=== PATIENT | female | born 2000 | race Caucasian/White ===

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

== ENCOUNTER 2020-08-28 14:32 | Emergency (ER) | payer OTHER ==
[~2020-08-28] VITALS: Ht 172 cm; Wt 63.6 kg
--- NOTE | 2020-08-28 14:51 | ED Upper Extremity ---
General Chief Complaint: Upper Extremity Stated Complaint: R COLLARBONE PAIN Source: patient Exam Limitations: no limitations (AYE VERDIN APRN) History of Present Illness Date Seen by Provider: Aug 28, 2020 Time Seen by Provider: 14:47 Initial Comments To ER with right shoulder and collarbone pain. She was playing disc golf about 3 days ago when she threw the disc and felt a popping sensation in her shoulder. Now anytime that she brings her arm forward and abducts the shoulder she notices a bulging at the sternoclavicular junction which was not present before. Onset: just prior to arrival Severity: moderate Pain/Injury Location: right shoulder Method of Injury: other (Throwing) Modifying Factors: Worse With Movement (AYE VERDIN APRN) Allergies and Home Medications Allergies Coded Allergies: No Known Drug Allergies (Unverified , 02/08/14) Home Medications Meclizine Hcl 25 Mg Tab, 1 TAB PO QID PRN Prescribed by: GRETCHEN GARSIA on 02/08/14 1535 Patient Home Medication List Home Medication List Reviewed: Yes (AYE VERDIN APRN) Review of Systems Constitutional: see HPI EENTM: see HPI Respiratory: no symptoms reported Cardiovascular: no symptoms reported Genitourinary: no symptoms reported Musculoskeletal: see HPI Skin: no symptoms reported Psychiatric/Neurological: No Symptoms Reported (AYE VERDIN APRN) Past [facility]wyakhs-Ljzaoy-Nalbkb Hx Past Medical History Asthma (AYE VERDIN APRN) Physical Exam Vital Signs Vital Signs - First Documented 08/28/20 14:37 Temp 36.5 Pulse 90 Resp 18 B/P (MAP) 120/88 (99) Pulse Ox 90 O2 Delivery Room Air (GUERRERO GARZON MD) Vital Signs Capillary Refill : (AYE VERDIN APRN) Height, Weight, BMI Height: 5'8" Weight: 110lbs. oz. 49.300560pm; BMI Method: General Appearance: WD/WN, no apparent distress Respiratory: no respiratory distress, no accessory muscle use Shoulder: normal inspection, non-tender, limited ROM (With shoulder abduction there is a palpable asymmetric bulge over the right sternoclavicular junction th at is not present on the left. The medial portion of the clavicle dislocates anteriorly and reduces upon shoulder abduction. ) Elbow/Forearm: normal inspection, non-tender Wrist: Yes normal inspection, Yes non-tender Hand: normal inspection, non-tender Neurologic/Psychiatric: alert, normal mood/affect, oriented x 3 Skin: normal color, warm/dry (AYE VERDIN APRN) Progress/Results/Core Measures Results/Orders Vital Signs/I&O 08/28/20 08/28/20 14:37 15:39 Temp 36.5 36.5 Pulse 90 90 Resp 18 18 B/P (MAP) 120/88 (99) 120/88 (99) Pulse Ox 90 90 O2 Delivery Room Air (GUERRERO GARZON MD) Departure Communication (Admissions) I will give her a sling, follow-up with orthopedics. She is neurovascularly intact at the fingertips, this is an anterior dislocation. This can be treated conservatively with limitation of movement, ice and NSAIDs. 1539-normal thumbs up normal okay sign. Discussed with the patient that she will need to follow-up with primary care to have MRI ordered to evaluate the labrum and the rotator cuff. Mother is upset that I cannot order this here from the emergency room. Discussed with her that we neither have MRI available on the weekends nor is it indicated from emergent standpoint even if we did have it available. She states "well if Id known that I would have gone somewhere else". Discussed with her that this is a very common problem and out of my control. She states "why cant you order it since she has an injury? you know theyre going to want it". I discussed with her that this is a daily problem that we encounter and I am not making this up. (AYE VERDIN APRN) Impression Primary Impression: Sternoclavicular separation Disposition: 01 HOME, SELF-CARE Condition: Stable Departure-Patient Inst. Decision time for Depature: 14:50 (AYE VERDIN APRN) Referrals: JIM REEVES MD (PCP/Family) Primary Care Physician JENNIFER DESAI MD, MICHAEL P MD Patient Instructions: How to Use a Shoulder Sling Add. Discharge Instructions: 1. Sling at all times except when showering for the next 3 weeks or as directed otherwise by orthopedics. Call an orthopedist of your choosing on Sunday to make an appointment to be seen for follow-up. All discharge instructions reviewed with patient and/or family. Voiced understanding. ATTENDING PHYSICIAN NOTE: I was physically present as attending physician in the emergency department during the care of this patient, but I was not directly involved in the decision making or delivery of care for this patient. (GUERRERO GARZON MD) Images Torso/Trunk 1 - Other-See Progress Note (AYE VERDIN APRN) AYE VERDIN APRN Aug 28, 2020 14:50 GUERRERO GARZON MD Aug 28, 2020 18:44
--- NOTE | 2020-08-28 15:30 | Diagnostic Imaging Report ---
INDICATION: Right shoulder pain. COMPARISON: Right shoulder radiographs performed concurrently. TECHNIQUE: Two views of the right clavicle. FINDINGS: The sternoclavicular joint on the right appears symmetric to the left. AC joint alignment is normal. No fracture within the clavicle. IMPRESSION: Normal alignment of the clavicle. Dictated by: Dictated on workstation # [id number]
--- NOTE | 2020-08-28 15:30 | Diagnostic Imaging Report ---
INDICATION: Right shoulder pain. COMPARISON: Right clavicle radiographs performed concurrently. TECHNIQUE: 3 views of the right shoulder. FINDINGS: Glenohumeral and acromioclavicular joints are in normal alignment. No fracture. Subacromial space is preserved. IMPRESSION: Normal right shoulder radiographs. Dictated by: Dictated on workstation # [id number]
[2020-08-28 15:39] VITALS: BP 120/88
== END 2020-08-28 15:41 | disposition home or self-care (01) ==
LOC: EDUNIT# 14:32 → ER 14:35
DX: S43.201A Unspecified subluxation of right sternoclavicular joint, initial encounter (principal); X50.0XXA Overexertion from strenuous movement or load, initial encounter; Y93.53 Activity, golf
CPT/HCPCS: 73000; 73030; 99283; A4565

== ENCOUNTER → 2021-01-28 | Outpatient (CLI) | payer OTHER ==
--- NOTE | 2021-01-28 11:14 | Diagnostic Imaging Report ---
INDICATION: Left lower quadrant pain Supine views of the abdomen show the bowel gas pattern to be within normal limits. There is no mass or calculus. There is no bony abnormality. IMPRESSION: No abnormality is seen. Dictated by: Dictated on workstation # [id number]
== END ==
LOC: RAD 10:33
PROVIDERS: ATTEND Nurse Practitioner Family
DX: Z23 Encounter for immunization (principal); J45.909 Unspecified asthma, uncomplicated; H81.09 Meniere's disease, unspecified ear; M12.9 Arthropathy, unspecified; N39.0 Urinary tract infection, site not specified
CPT/HCPCS: 74018

== ENCOUNTER 2022-05-09 05:31 | Outpatient (CLI) | payer OTHER ==
[~2022-05-09] VITALS: Ht 172.7 cm; Wt 70.5 kg
[2022-05-09] MEDS ORDERED: ETON1VAG VG (15:13)
== END 2022-05-09 16:58 | disposition home or self-care (01) ==
LOC: PREOP 05:31
PROVIDERS: ATTEND Otolaryngology Otolaryngology/Facial Plastic Surgery
DX: Z01.818 Encounter for other preprocedural examination (principal)

== ENCOUNTER 2022-05-16 09:46 | Day surgery (SDC) | payer OTHER ==
[2022-05-16] VITALS (11 sets, daily range): BP systolic 89–124; BP diastolic 53–81
[~2022-05-16] VITALS: Ht 172.7 cm; Wt 70.5 kg
[~2022-05-16 09:46] MED LIST changes: +ETON1VAG VG
[2022-05-16] MEDS ORDERED: SCOPOLAMINE 1.5 MG (TRANSDERM-SCOP) PATCH TOP ONE (10:45)
[2022-05-16] MEDS ORDERED: FAMOTIDINE 20MG/2ML IV (PEPCID) IV ONE (10:45)
[2022-05-16] MEDS ORDERED: ONDANSETRON 4 MG/2 ML (SDV) Z0FRAN IV ONE (10:45)
[2022-05-16] MEDS: LACTATED RINGERS 1,000 ML IV PRN ×2 (10:50→13:36)
[2022-05-16] MEDS ORDERED: GLYCOPYRROLATE 0.2 MG/ML (ROBINUL) 2 ML VIAL ONE (12:25)
[2022-05-16] MEDS ORDERED: fentaNYL INJ 100 MCG/2 ML AMP ONE (12:25)
[2022-05-16] MEDS ORDERED: LIDOCAINE PF 2% 5 ML (XYLOCAINE) VIAL ONE (12:25)
[2022-05-16] MEDS ORDERED: proPOfol 200 MG/20 ML (DIPRIVAN) VIAL IV ONE (12:25)
[2022-05-16] MEDS ORDERED: ONDANSETRON 4 MG/2 ML (SDV) Z0FRAN ONE (12:25)
[2022-05-16] MEDS ORDERED: ROCURONIUM 50 MG/5 ML (ZEMURON) VIAL IV ONE (12:26)
[2022-05-16] MEDS ORDERED: NEOSTIGMINE (BLOXIVERZ ) 1 MG/1ML 10 ML VIAL ONE (12:26)
[2022-05-16] MEDS ORDERED: MIDAZOLAM 2 MG/2 ML (VERSED) VIAL ONE (12:26)
--- NOTE | 2022-05-16 12:47 | Progress Note-Pre Operative ---
Pre-Operative Progress Note Date of Available H&P: May 16, 2022 Date H&P Reviewed: May 16, 2022 Time H&P Reviewed: 12:00 History & Physical: H&P Reviewed, Patient Examed, No changes noted Changes from last HP none Pre-Operative Diagnosis: rec tonsillitis, Chronic Tonsil Stones RAMONA JAMES MD May 16, 2022 12:47
--- NOTE | 2022-05-16 12:48 | Progress Note-Post Operative ---
Post-Operative Progess Note Surgeon (s)/Armor Officer (s) Surgeon RAMONA JAMES MD Armor Officer n/a Pre-Operative Diagnosis rec tonsillitis, Chronic Tonsil Stones Post-Operative Diagnosis same Post-Op Procedure Note Date of Procedure: May 16, 2022 Name of Procedure Performed: Tonsillectomy Description & Findings Description and Findings: n/a Anesthesia Type get Estimated Blood Loss minimal Packing none. Specimen(s) collected/removed tonsils RAMONA JAMES MD May 16, 2022 12:48
[2022-05-16] MEDS ORDERED: APAP 325 MG/10.15 ML LIQ (TYLENOL) UDC PO PRN (13:00)
[2022-05-16] MEDS ORDERED: NS IV 1000 ML 1,000 ML IV SCH (13:00)
[2022-05-16] MEDS ORDERED: oxyCODONE 5 MG/5 ML ORAL SOLN (roxiCODONE) 5 ML UDC PO PRN (13:00)
[2022-05-16] MEDS ORDERED: SEVOFLURANE (ULTANE) 15 ML INHAL SOLN ONE (13:02)
[2022-05-16] MEDS ORDERED: HYDROmorphone 2 MG/ML VIAL (DILAUDID) IV ONE (13:30)
[2022-05-16] MEDS ORDERED: morphine INJ 10 MG/ML 1ML (SYR OR VIAL) IVP ONE (13:30)
[2022-05-16] MEDS ORDERED: ONDANSETRON 4 MG/2 ML (SDV) Z0FRAN IVP PRN (13:30)
--- NOTE | 2022-05-16 13:41 | Anesthesia-General Post-Op ---
General Patient Condition Mental Status/LOC: Same as Preop Cardiovascular: Satisfactory Nausea/Vomiting: Absent Respiratory: Satisfactory Pain: Controlled Complications: Absent Post Op Complications Complications None Follow Up Care/Instructions Patient Instructions None needed. Anesthesia/Patient Condition Patient Condition Patient is in PACU awake and doing well, no complaints, stable vital signs, no apparent adverse anesthesia problems. No complications reported per nursing. KATHERYN HARRISON DO May 16, 2022 13:41
[2022-05-16] MEDS ORDERED: OXYC5SOL19 PO (15:18)
[2022-05-16] MEDS ORDERED: TETRACAINESUCKERS MT (15:18)
[2022-05-16] MEDS ORDERED: DEXAINTSOL PO (15:18)
[2022-05-16] MEDS ORDERED: AZIT200S47 PO (15:18)
== END 2022-05-16 16:25 | disposition home or self-care (01) ==
LOC: SDC 09:46
PROVIDERS: ATTEND Otolaryngology Otolaryngology/Facial Plastic Surgery
DX: J35.01 Chronic tonsillitis (principal); J35.8 Other chronic diseases of tonsils and adenoids
CPT/HCPCS: 84703; 87081

== ENCOUNTER 2022-05-17 14:23 | Observation (INO) | payer OTHER ==
[~2022-05-17] VITALS: Ht 173 cm; Wt 68.0 kg
[~2022-05-17 14:23] MED LIST changes: +AZIT200S47 PO; +DEXAINTSOL PO; +OXYC5SOL19 PO; +TETRACAINESUCKERS MT
[2022-05-17] MEDS ORDERED: NS IV 500 ML 500 ML IV ONE (15:30)
--- NOTE | 2022-05-17 15:43 | Diagnostic Imaging Report ---
CLINICAL INDICATIONS: Patient with crepitus in the jaw. EXAM: Portable chest x-ray upright view. COMPARISON: None. FINDINGS: Lungs/pleura: Lungs are clear. There is no pneumothorax. There is no pleural effusion. Mediastinum: Unremarkable. Pulmonary vasculature: Unremarkable. Heart: Unremarkable. Bones/extrathoracic soft tissue: Unremarkable. IMPRESSION: There is no radiographic evidence of acute cardiopulmonary process. Dictated by: Dictated on workstation # [id number]
--- NOTE | 2022-05-17 15:47 | ED EENT ---
History of Present Illness General Chief Complaint: Oral/Throat Problems Stated Complaint: POST OP TONSIL PAIN | SWOLLEN THROAT Nursing Triage Note: Patient ambulatory to ER w c/o throat swelling and pain post tonisillectomy. Patients states it's taking a lot of effort to swallow- started yesterday after surgery getting worse. patient denies difficulty breathing or bleeding at this time. Source: patient, family Exam Limitations: no limitations History of Present Illness Date Seen by Provider: May 17, 2022 Time Seen by Provider: 15:25 Initial Comments 22-year-old female presents to the ED with complaints of difficulty swallowing and crepitus of her jaw and neck. She had her tonsils removed yesterday by Dr. Ariza. Denies any issue with breathing, denies fevers. Reports some redness to her chin and jaw. States that she is able to swallow, but has difficulty with it. Dr. Ariza is already down in the ER to see her. Allergies and Home Medications Allergies Coded Allergies: chlorhexidine (Unverified Allergy, Intermediate, Rash, 05/09/22) Patient Home Medication List Home Medication List Reviewed: Yes Azithromycin (Azithromycin) 200 Mg/5 Ml Susp.recon, 1 TSP PO DAILY Prescribed by: MATTHIAS CONNOLLY on 05/16/221517 Last Action: Reviewed Dexamethasone (Decadron Intensol Oral Solution (Repackaging)) 1 Mg/Ml Naida, 2 TSP PO DAILY PRN for PAIN Prescribed by: MATTHIAS CONNOLLY on 05/16/221517 Last Action: Reviewed Etonogestrel/Ethinyl Estradiol (Nuvaring Vaginal Ring) 0.12 Mg-0.015 Mg/24 Hr Vag.ring, 1 EACH VG EVERY 3 WEEKS, (Reported) Entered as Reported by: Naima Fitzgerald on 05/09/221512 Last Action: Reviewed Oxycodone HCl (Oxycodone HCl) 5 Mg/5 Ml Solution, 1-2 ML PO Q4H Prescribed by: MATTHIAS CONNOLLY on 05/16/221517 Last Action: Reviewed Tetracaine (Tetracaine Suckers) Eloisa Ea, 1 EA MT UD PRN for PAIN Prescribed by: MATTHIAS CONNOLLY on 05/16/221517 Last Action: Reviewed Review of Systems Review of Systems Constitutional: see HPI Past Fmzubkh-Obyroe-Cymtbi Hx Patient Social History Tobacco Use?: No Substance use?: No Alcohol Use?: No Immunizations Up To Date Tetanus Booster (TDap): More than 5yrs First/Initial COVID19 Vaccinat: unknown Second COVID19 Vaccination Vaibhav: 10/23 Third COVID19 Vaccination Date: 04/26 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 Seasonal Allergies Seasonal Allergies: No Past Medical History Surgeries: Yes Orthopedic Respiratory: No Asthma Currently Using CPAP: No Currently Using BIPAP: No Cardiac: No Neurological: No Genitourinary: No Gastrointestinal: No Musculoskeletal: No Endocrine: No HEENT: No Cancer: No Psychosocial: Yes Anxiety Integumentary: No Blood Disorders: No Adverse Reaction/Blood Tranf: No Physical Exam Vital Signs Vital Signs - First Documented 05/17/22 05/17/22 05/17/22 14:32 17:36 18:31 Temp 36.8 Pulse 89 Resp 18 B/P (MAP) 139/74 (95) Pulse Ox 98 O2 Delivery Nasal Cannula FiO2 21 Height, Weight, BMI Height: 5'8" Weight: 110lbs. oz. 49.662141bp; 22.00 BMI Method: General Appearance: WD/WN, no apparent distress Mouth/Throat: No pharynx swelling; other (Wound to posterior throat due to tonsillectomy, no swelling of throat) Neck: supple, other (Crepitus) Cardiovascular: regular rate, rhythm, no edema, no gallop, no JVD, no murmur Respiratory: lungs clear, normal breath sounds, no respiratory distress, no accessory muscle use Neurologic/Psychiatric: alert, oriented x 3 Skin: normal color, warm/dry Progress/Results/Core Measures Results/Orders My Orders Orders - MU LUO APRN Chest 1 View, Ap/Pa Only (05/17/22 15:25) Ed Iv/Invasive Line Start (05/17/22 15:25) Ns Iv 500 Ml (Sodium Chloride 0.9%) (05/17/22 15:30) Ed Admission (Communication) (05/17/22 15:55) Medications Given in ED Vital Signs/I&O 05/18/22 05/18/22 07:19 08:00 Temp 37.0 Pulse 66 Resp 20 B/P (MAP) 103/63 (76) Pulse Ox 97 O2 Delivery Room Air Room Air Blood Pressure Mean: 95 Progress Progress Note : Time: 15:45 Progress Note Patient seen and evaluated, resting on the bed, no acute distress. Dr. Ariza already at bedside and saw patient. He recommends admitting for observation overnight to monitor her and to give her IV fluids. He would like her to get a chest x-ray and 500 mls of normal saline bolus. He will place admission orders. Departure Communication (Admissions) Time/Spoke to Admitting Phy: 15:45 Dr. Ariza, ENT, will admit patient for observation. Impression Primary Impression: Status post tonsillectomy Disposition: ADMITTED INPATIENT Condition: Stable Admissions Decision to Admit Reason: Admit from ER (General) Decision to Admit/Date: May 17, 2022 Time/Decision to Admit Time: 15:42 Departure-Patient Inst. Referrals: JIM REEVES MD (PCP/Family) Primary Care Physician MU LUO APRN May 17, 2022 15:47
[2022-05-17 18:05] VITALS: BP 114/66
[2022-05-17] MEDS: NS IV 1000 ML 1,000 ML IV SCH (18:30)
[2022-05-17] MEDS ORDERED: ACETAMINOPHEN 500 MG TAB (TYLENOL) PO PRN (18:30)
[2022-05-17] MEDS ORDERED: CATHETER FLUSH 10 ML SYR IV PRN (18:30)
[2022-05-17 18:31] VITALS: BP 139/74
[2022-05-17] MEDS ORDERED: RT-ALBUTEROL SULF 2.5 MG/3 ML PRE-MIX VIAL INH PRN (18:45)
[2022-05-17] MEDS: oxyCODONE 5 MG/5 ML ORAL SOLN (roxiCODONE) 5 ML UDC PO PRN ×2 (18:53→23:58)
[2022-05-17 20:01] VITALS: BP 110/72
[2022-05-17] MEDS: CATHETER FLUSH 10 ML SYR IV SCH (21:17)
[2022-05-18 00:22] VITALS: BP 105/57
[2022-05-18 03:47] VITALS: BP 101/58
[2022-05-18] MEDS: CATHETER FLUSH 10 ML SYR IV SCH ×2 (05:54→07:49)
[2022-05-18] MEDS: NS IV 1000 ML 1,000 ML IV SCH (05:55)
--- NOTE | 2022-05-18 06:11 | Progress Note ---
Standard Progress Note Progress Notes/Assess & Plan Date Seen by a Provider: May 18, 2022 Time Seen by a Provider: 06:00 Progress/Assessment & Plan ENT-To Doing well-no bleeding swelling in neck about the same no problems breathng cxr on admission was normal OP-tonsillar fossa look good-no bleeding or signs of infection Neck-mild crepitus in submental region serafin f crepitus has cleared imp: Crepitus post tonsillectomy Rec: 1. no increase in crepitus; as long as drinks for breakfast will discharge 2. same instructions/ ptient has all rx's at home 3. keep scheduled return apt 4. call if new symptms arise or crepitus gets worse Final Diagnosis Crepitus neck post tonsillectomy RAMONA JAMES MD May 18, 2022 06:11
[2022-05-18 07:19] VITALS: BP 103/63
[2022-05-18] MEDS: oxyCODONE 5 MG/5 ML ORAL SOLN (roxiCODONE) 5 ML UDC PO PRN (07:49)
[2022-05-18] MEDS ORDERED: AZITHROMYCIN 200 MG/5 ML (ZITHROMAX) 30 ML PO SCH (09:00)
== END 2022-05-18 09:39 | disposition home or self-care (01) ==
LOC: EDUNIT# 14:23 → ER 14:25 → 4TH 17:39 → UNDOADMOB 17:39 → 4TH 17:47 → UNDODISOB 05-18 09:39
PROVIDERS: ADMIT Otolaryngology Otolaryngology/Facial Plastic Surgery; ATTEND Otolaryngology Otolaryngology/Facial Plastic Surgery
DX: R29.898 Other symptoms and signs involving the musculoskeletal system (principal); Z90.89 Acquired absence of other organs
CPT/HCPCS: 71045; 96361 ×2; 96375; 96376; 99284; G0378